=== PATIENT | male | born 1960 | race Asian ===

== ENCOUNTER 2021-07-31 18:23 | Emergency (ER) | payer MEDICAID ==
[~2021-07-31] VITALS: Ht 172.7 cm; Wt 70.3 kg
[2021-07-31 18:47] VITALS: BP_SYST 171
--- NOTE | 2021-07-31 18:47 | NUR ---
Pt triaged in waiting room using [employer] drop wire hanger phone line
--- NOTE | 2021-07-31 20:30 | NUR ---
ear irrigated with approximately 600 ml of warm water and h2o2 mixture. no wax or other material came out.
[2021-07-31] MEDS ORDERED: AUG875 PO (21:03)
[2021-07-31] MEDS ORDERED: OFLO5DRO5 LEFT EAR (21:03)
[2021-07-31 21:26] VITALS: BP_SYST 117
--- NOTE | 2021-07-31 21:28 | NUR ---
2030 Ear irrigation done, connected to bedside monitor VSS, afebrile.
--- NOTE | 2021-07-31 21:29 | NUR ---
Patient given written and verbal discharge instructions and verbalizes understanding. IRA Reed MD discussed with patient the results and treatment provided. Patient in stable condition. Rx of given. Patient educated on pain management and to follow up with PMD. Pain Scale . Opportunity for questions provided and answered. Medication side effect fact sheet provided.
== END 2021-07-31 21:27 | disposition home or self-care (01) ==
LOC: SED 18:23
DX: T16.2XXA Foreign body in left ear, initial encounter (principal); I10 Essential (primary) hypertension; X58.XXXA Exposure to other specified factors, initial encounter; Y93.89 Activity, other specified; Y92.89 Other specified places as the place of occurrence of the external cause; Y99.8 Other external cause status
CPT/HCPCS: 99282; 99283; 99284

== ENCOUNTER 2022-08-23 16:08 | Emergency (ER) | payer MEDICAID ==
[~2022-08-23] VITALS: Ht 177.8 cm; Wt 72.6 kg
[~2022-08-23 16:08] MED LIST: AUG875 PO; OFLO5DRO5 LEFT EAR
[2022-08-23 16:27] VITALS: BP_SYST 155
--- NOTE | 2022-08-23 16:30 | NUR ---
Dr Singh evaluating patient in the triage room
[2022-08-23] MEDS ORDERED: KETOROLAC TROMETHAMINE 60 MG/2 ML VIAL IM ONE (17:30)
[2022-08-23] MEDS ORDERED: HYDROcodone/ACETAMIN 10-325 MG TAB PO ONE (17:30)
--- NOTE | 2022-08-23 17:40 | NUR ---
Pt brought by self, A&Ox4, pt presents to ER with R neck pain x 4 days, denies trauma, skin pink and warm, cap refill <3, VSS.
[2022-08-23 18:18] LABS: BASOPHILS # (AUTO) 0.1 K/uL (0.0-0.2); BASOPHILS % (AUTO) 0.7 % (0.0-2.0); EOSINOPHILS # (AUTO) 0.1 K/uL (0.0-0.4); EOSINOPHILS % (AUTO) 1.8 % (0.0-4.0); LYMPHOCYTES % (AUTO) 25.7 % (20.5-51.5); MEAN CORPUSCULAR HEMOGLOBIN 31 pg (27-31); MEAN CORPUSCULAR HGB CONC 33 % (32-36); MEAN CORPUSCULAR VOLUME 92 fL (79.0-98.0); MONOCYTES # (AUTO) 0.6 K/uL (0.0-1.0); MONOCYTES % (AUTO) 7.7 % (1.7-9.3); NEUTROPHILS # (AUTO) 4.9 K/uL (1.8-7.7); NEUTROPHILS % (AUTO) 64.1 % (40.0-70.0); PLATELET COUNT (AUTO) 259 K/uL (130-430); RED BLOOD CELL COUNT(AUTO) 4.92 MIL/uL (4.2-6.2); RED CELL DISTRIBUTION WIDTH 13.2 % (9.0-15.0); WHITE BLOOD COUNT (AUTO) 7.6 K/uL (4.8-10.8)
[2022-08-23 18:37] LABS: ANION GAP 8 (5-15); CALCIUM 8.3 mg/dL (8.4-11.0); CHLORIDE 103 mmol/L (98-107); CREATININE 1.05 mg/dL (0.55-1.30); GFR AFRICAN AMERICAN 92 mL/min (>90); GLUCOSE 94 mg/dL (70-99); UREA NITROGEN, BLOOD 19 mg/dL (8-21)
[2022-08-23 18:47] LABS: ALANINE AMINOTRANSFERASE 33 U/L (12-78); ASPARTATE AMINOTRANSFERASE 21 U/L (10-37); TOTAL BILIRUBIN 0.6 mg/dL (0.0-1.0)
[2022-08-23 18:50] LABS: C-REACTIVE PROTEIN QUANT < 0.2 mg/dL (0-0.5)
[2022-08-23] MEDS ORDERED: TRAM50TA2 PO (19:01)
[2022-08-23] MEDS ORDERED: IBUP-1971 PO (19:01)
--- NOTE | 2022-08-23 19:37 | NUR ---
Patient given written and verbal discharge instructions and verbalizes understanding. ER MD discussed with patient the results and treatment provided. Patient in stable condition. ID arm band removed. Rx of given. Patient educated on pain management and to follow up with PMD. Pain Scale 0 . Opportunity for questions provided and answered. Medication side effect fact sheet provided.
--- NOTE | 2022-08-23 20:04 | NUR ---
Note undone in EDM - 08/23/22 at 2004 by [id number] Patient given written and verbal discharge instructions and verbalizes understanding. ER discussed with patient the results and treatment provided. Patient in stable condition. ID arm band removed. Rx of given. Patient educated on pain management and to follow up with PMD. Pain Scale 0. Opportunity for questions provided and answered. Medication side effect fact sheet provided.
== END 2022-08-23 19:25 | disposition home or self-care (01) ==
LOC: SED 16:08
DX: M25.511 Pain in right shoulder (principal); M54.2 Cervicalgia; M54.6 Pain in thoracic spine; I10 Essential (primary) hypertension; Z79.899 Other long term (current) drug therapy
CPT/HCPCS: 99284; 80053; 85025; 86140; 36415; 72040; 73030; 96372; J1885

== ENCOUNTER 2022-08-29 09:36 | Emergency (ER) | payer MEDICAID ==
[~2022-08-29] VITALS: Ht 162.6 cm; Wt 79.4 kg
[~2022-08-29 09:36] MED LIST changes: +IBUP-1971 PO; +TRAM50TA2 PO
[2022-08-29 09:51] VITALS: BP_SYST 192
[2022-08-29] MEDS ORDERED: ACETAMINOPHEN 500 MG TABLET PO ONE (10:15)
[2022-08-29] MEDS ORDERED: KETOROLAC TROMETHAMINE 30 MG VIAL IVP ONE (10:15)
[2022-08-29] MEDS ORDERED: LIDOCAINE 1% 10 MG/ML, 20 ML MDV INJ ONE (10:15)
[2022-08-29] MEDS ORDERED: LABETALOL HCL 20 MG/4 ML CARTRIDGE IVP ONE (10:15)
[2022-08-29 10:38] LABS: BASOPHILS % (AUTO) 0.5 % (0.0-2.0); EOSINOPHILS # (AUTO) 0.1 K/uL (0.0-0.4); HEMATOCRIT 44.5 % (36-54); HEMOGLOBIN 14.8 g/dL (14.0-18.0); LYMPHOCYTES # (AUTO) 1.2 K/uL (1.0-5.5); LYMPHOCYTES % (AUTO) 14.9 % (20.5-51.5); MEAN CORPUSCULAR HEMOGLOBIN 30 pg (27-31); MEAN CORPUSCULAR HGB CONC 33 % (32-36); MEAN CORPUSCULAR VOLUME 91 fL (79.0-98.0); MONOCYTES # (AUTO) 0.5 K/uL (0.0-1.0); MONOCYTES % (AUTO) 6.1 % (1.7-9.3); NEUTROPHILS % (AUTO) 77.5 % (40.0-70.0); PLATELET COUNT (AUTO) 264 K/uL (130-430); RED BLOOD CELL COUNT(AUTO) 4.91 MIL/uL (4.2-6.2); RED CELL DISTRIBUTION WIDTH 13.4 % (9.0-15.0); WHITE BLOOD COUNT (AUTO) 7.7 K/uL (4.8-10.8)
[2022-08-29 10:44] LABS: ANION GAP 9 (5-15); CALCIUM 8.3 mg/dL (8.4-11.0); CHLORIDE 101 mmol/L (98-107); CREATININE 1.18 mg/dL (0.55-1.30); GFR AFRICAN AMERICAN 81 mL/min (>90); GLUCOSE 160 mg/dL (70-99); UREA NITROGEN, BLOOD 23 mg/dL (8-21)
[2022-08-29 10:51] LABS: ALANINE AMINOTRANSFERASE 27 U/L (12-78); ASPARTATE AMINOTRANSFERASE 21 U/L (10-37); TOTAL BILIRUBIN 1.2 mg/dL (0.0-1.0)
[2022-08-29] MEDS ORDERED: AZITHROMYCIN 250 MG TABLET PO ONE (11:00)
[2022-08-29] MEDS ORDERED: AMOXICILLIN 500 MG CAPSULE PO ONE (11:00)
[2022-08-29] MEDS ORDERED: ZIT250 PO (11:03)
[2022-08-29] MEDS ORDERED: AMOX500C2 PO (11:03)
[2022-08-29] MEDS ORDERED: DICL20GE TP (11:10)
[2022-08-29] MEDS ORDERED: BACL20TA PO (11:10)
[2022-08-29] MEDS ORDERED: ACET-2634 PO (11:10)
[2022-08-29] MEDS ORDERED: LIDO1ADH22 TP (11:10)
[2022-08-29 11:45] VITALS: BP_SYST 145
== END 2022-08-29 12:35 | disposition home or self-care (01) ==
LOC: SED 09:36
DX: M62.838 Other muscle spasm (principal); I10 Essential (primary) hypertension; M54.2 Cervicalgia; M25.511 Pain in right shoulder; Z79.899 Other long term (current) drug therapy
CPT/HCPCS: 99285; 96374; 71045; 96375; 80053; 82550; 85025; 84484; 36415; 93005; 96372; J1885; J2001; Q0144

== ENCOUNTER 2022-09-15 09:01 | Emergency (ER) | payer MEDICAID ==
[~2022-09-15] VITALS: Ht 175.3 cm; Wt 65.8 kg
[~2022-09-15 09:01] MED LIST changes: +ACET-2634 PO; +AMOX500C2 PO; +BACL20TA PO; +DICL20GE TP; +LIDO1ADH22 TP; +ZIT250 PO
[2022-09-15 09:33] VITALS: BP_SYST 171
[2022-09-15] MEDS ORDERED: HYDROcodone/ACETAMIN 10-325 MG TAB PO ONE (09:45)
[2022-09-15] MEDS ORDERED: KETOROLAC TROMETHAMINE 60 MG/2 ML VIAL IM ONE (09:45)
[2022-09-15] MEDS ORDERED: IBUP-1971 PO (11:44)
[2022-09-15] MEDS ORDERED: TRAM50TA2 PO (11:44)
[2022-09-15 12:03] VITALS: BP_SYST 176
== END 2022-09-15 12:02 | disposition home or self-care (01) ==
LOC: SED 09:01
DX: S13.4XXA Sprain of ligaments of cervical spine, initial encounter (principal); M25.512 Pain in left shoulder; I10 Essential (primary) hypertension; X58.XXXA Exposure to other specified factors, initial encounter; Y93.89 Activity, other specified; Y92.89 Other specified places as the place of occurrence of the external cause; Y99.8 Other external cause status
CPT/HCPCS: 99285; 72125; 76376; 96372; J1885

== ENCOUNTER 2023-10-06 10:53 | Emergency (ER) | payer MEDICAID ==
[~2023-10-06] VITALS: Ht 157.5 cm; Wt 68.0 kg
[2023-10-06 11:04] VITALS: BP_SYST 149; PULSE 67; RESP 18; TEMP 98.3; O2SAT 98
[2023-10-06] MEDS ORDERED: OLOP2.5D11 EACH EYE (12:01)
[2023-10-06 12:12] VITALS: BP_SYST 149; PULSE 67; RESP 18; TEMP 98.3; O2SAT 98
== END 2023-10-06 12:11 | disposition home or self-care (01) ==
LOC: SED 10:53
DX: H10.13 Acute atopic conjunctivitis, bilateral (principal); I10 Essential (primary) hypertension; Z79.899 Other long term (current) drug therapy; Z79.2 Long term (current) use of antibiotics
CPT/HCPCS: 99282